=== PATIENT | female | born 1995 | race African-American/Black ===

== ENCOUNTER 2017-03-06 10:23 | Outpatient (CLI) | payer MEDICAID ==
[2017-03-06] MEDS ORDERED: TYLENOL PO ONE (11:27)
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
[2017-03-06 11:54] VITALS: BP 112/76
[2017-03-06 12:20] LABS: Basophils % (Auto) 0.5 % (0.0-1.8); Eosinophils % (Auto) 0.4 % (0.0-4.3); Hematocrit 33.6 % (30.3-42.9); Hemoglobin 10.9 gm/dl (10.1-14.3); Lymphocytes # (Auto) 1.2 K/mm3 (1.2-5.4); Lymphocytes % (Auto) 13.7 % (13.4-35.0); Mean Corpuscular HGB Conc 32 % (30-34); Mean Corpuscular Hemoglobin 29 pg (28-32); Mean Corpuscular Volume 88 fl (79-97); Monocytes # (Auto) 0.8 K/mm3 (0.0-0.8); Monocytes % (Auto) 8.7 % (0.0-7.3); Platelet Count 205 K/mm3 (140-440); Red Blood Count 3.82 M/mm3 (3.65-5.03); Red Cell Distribution Width 15.8 % (13.2-15.2)
[2017-03-06 12:36] LABS: BUN/Creatinine Ratio 13; Blood Urea Nitrogen 5 mg/dL (7-17); Calcium 8.8 mg/dL (8.4-10.2); Hemolysis Index 1
--- NOTE | 2017-03-06 14:12 | XRay Report ---
CERVICAL SPINE, 3 views: History: Neck pain. Findings: The vertebral bodies, disk spaces, posterior elements and prevertebral soft tissues are unremarkable. The dens is intact. No acute fracture or malalignment is identified. Impression: 1. No evidence for acute injury to the cervical spine.
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
== END 2017-03-06 17:59 | disposition home or self-care (01) ==
LOC: LDOR 10:23 → ED 10:23 → EDSTATUS 16:26 → TRG 16:32 → LD 16:36 → LDOR 17:59
PROVIDERS: ATTEND Obstetrics & Gynecology
DX: O99.89 Other specified diseases and conditions complicating pregnancy, childbirth and the puerperium (principal); N13.30 Unspecified hydronephrosis; O26.892 Other specified pregnancy related conditions, second trimester; R10.9 Unspecified abdominal pain; R07.9 Chest pain, unspecified; M54.2 Cervicalgia; Z3A.22 22 weeks gestation of pregnancy
CPT/HCPCS: 36415; 59025; 72040; 76770; 76805; 80048; 84702; 85025